=== PATIENT | male | born 1960 | race Caucasian/White ===

== ENCOUNTER 2019-07-13 06:05 | Emergency (ER) | payer MEDICAID, OTHER ==
[~2019-07-13] VITALS: Ht 154.9 cm; Wt 67.1 kg
[2019-07-13 06:13] VITALS: BP 124/76
--- NOTE | 2019-07-13 06:13 | NUR ---
PT AMBULATED TO BED #2.
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
--- NOTE | 2019-07-13 06:22 | NUR ---
DR. MONTIEL AT BEDSIDE.
[2019-07-13] MEDS ORDERED: KETOROLAC 60 MG/2 ML VIAL IM ONE (06:25)
[2019-07-13] MEDS ORDERED: CYCLOBENZAPRINE 10 MG TAB PO ONE (06:25)
--- NOTE | 2019-07-13 06:33 | NUR ---
TORADOL 60MG IM AND FLEXERIL 10MG PO GIVEN.
--- NOTE | 2019-07-13 06:38 | NUR ---
EKG PERFORMED AT BEDSIDE WITH FAMILY PRESENT
--- NOTE | 2019-07-13 06:52 | NUR ---
PT TAKEN TO X-RAY VIA W/C. PT ABLE TO AMBULATE TO W/C FROM BED WITH STEADY GAIT.
--- NOTE | 2019-07-13 07:04 | NUR ---
DR. MONTIEL AT BEDSIDE.
[2019-07-13 07:15] VITALS: BP 124/76
--- NOTE | 2019-07-13 07:15 | NUR ---
Patient discharged with v/s stable. Written and verbal after care instructions given and explained. Patient alert, oriented and verbalized understanding of instructions. Ambulatory with steady gait. All questions addressed prior to discharge. ID band removed. Patient advised to follow up with PMD. Rx of NAPROXEN, FLEXERIL given. Patient educated on indication of medication including possible reaction and side effects. Opportunity to ask questions provided and answered.
== END 2019-07-13 07:15 | disposition home or self-care (01) ==
LOC: MED 06:05
DX: S16.1XXA Strain of muscle, fascia and tendon at neck level, initial encounter (principal); M79.10 Myalgia, unspecified site; R07.89 Other chest pain; V49.40XA Driver injured in collision with unspecified motor vehicles in traffic accident, initial encounter; Y93.89 Activity, other specified; Y99.0 Civilian activity done for income or pay; Z79.899 Other long term (current) drug therapy
CPT/HCPCS: 71046; 93005; 96372; 99283; J1885